=== PATIENT | female | born 1965 | race American Indian/Alaskan Native ===

== ENCOUNTER → 2017-01-25 | Day surgery (SDC) | payer OTHER ==
--- NOTE | 2017-01-28 09:38 | OP ---
DATE OF OPERATION: 01/25/2017 PROCEDURE: Ultrasound-guided core biopsies with clip placements at each of these areas PREOPERATIVE DIAGNOSIS: 1. Left axillary suspicious adenopathy 2. Left breast mass, 7 o'clock, 8 cm from the nipple 3. Left breast mass, 10 o'clock, 6 cm from the nipple 4. Left breast mass, 4 o'clock, 4 cm from the nipple POSTOPERATIVE DIAGNOSIS: 1. Left axillary suspicious adenopathy 2. Left breast mass, 7 o'clock, 8 cm from the nipple 3. Left breast mass, 10 o'clock, 6 cm from the nipple 4. Left breast mass, 4 o'clock, 4 cm from the nipple ANESTHESIA: Local ATTENDING SURGEON: Manuel Callahan MD ESTIMATED BLOOD LOSS: Minimal. COMPLICATIONS: None. DESCRIPTION OF PROCEDURE: Patient was made aware of the risks and benefits of the procedure and consented. She was placed in a supine position. Under sterile conditions with 1% lidocaine for local anesthesia, the left axilla was approached first. Using 1% lidocaine for local anesthesia, a small jeronimo was made in the skin. Using a 13-gauge, suction biopsy via a inferolateral approach and ultrasound guidance, 8 cores were obtained and submitted to pathology. Likewise under ultrasound guidance, a U-shaped clip was placed into the biopsy region. Next, the breast masses were approached. All were performed in a similar fashion. The 7-8 o'clock lesion was performed next. Under sterile conditions with 1% lidocaine for local anesthesia, a small jeronimo was made in the skin using a 13-gauge, suction biopsy via a inferolateral approach under ultrasound guidance, 8 cores were obtained and submitted to pathology. Likewise, under ultrasound guidance a bowtie-shaped clip was placed into the mass. Next, the 10 o'clock 6 cm from the nipple mass was approached. Under sterile conditions with 1% lidocaine for local anesthesia, a small jeronimo was made on the skin. Using a 10-gauge, suction biopsy via a lateral approach and ultrasound guidance, 4 cores were obtained and submitted to pathology. Likewise, under ultrasound guidance a U-shaped clip was placed into the biopsy region. Next was the 4 o'clock 4 cm from the nipple mass. Under sterile conditions with 1% lidocaine for local anesthesia, a small jeronimo was made in the skin. Using a 10-gauge, suction biopsy via a lateral approach under ultrasound guidance, 4 cores were obtained and submitted to pathology, and likewise a Mini Cork clip was placed as well. Steri-Strips and a sterile bandage were applied. The patient actually tolerated the procedure very well, and because of the multiple biopsies, I wrapped her chest in an LUCI wrap for 24 hours. Will contact her with the results. MANUEL CALLAHAN M.D. [id number]
--- NOTE | 2017-01-28 14:32 | PATH ---
Surgical Pathology Report Patient Name: ADRIENNE KAPOOR [facility] Rec. #: [id number] /Age/Gender: 1965 (Age: 51) / F Account: [id number] Location: Taken: 01/25/2017 Received: 01/25/2017 Reported: 01/28/2017 Physicians: Amara Callahan M.D. Specimen(s) Received A: RIGHT AXILLARY NODE BX B: RIGHT BREAST BIOPSY 7-8:00, 5CM FN C: RIGHT BREAST BIOPSY 10:00, 6CM FN D: RIGHT BREAST BIOPSY 4:00, 4 CM FN Clinical History Right breast and axilla biopsies Final Diagnosis A. lymph node, right axilla, core biopsy: Metastatic carcinoma involving lymph node. B. breast, right, 7-8:00 5 CM FN, core biopsy: Invasive ductal carcinoma, poorly differentiated, measuring 6 mm in greatest dimension in this material. C. breast, right, 10:00 6 CM FN, core biopsy: Invasive ductal carcinoma, poorly differentiated measuring 5 mm in greatest dimension IN THIS material. D. breast, right, 4:00, 4 CM FN, CORE biopsy: Invasive ductal carcinoma, poorly differentiated with prominent associated lymphoid tissue, possibly representing metastatic carcinoma involving (intramammary) LYMPH node. Invasive carcinoma measures 4 mm in greatest dimension IN THIS material. Results of ER and AK studies performed on blocks B,C,D at [facility] are as follows: ER (clone [id number] mouse monoclonal antibody by [employer]): 0 % nuclear staining (Negative). AK (clone16 mouse monoclonal antibody by [employer]: 0 % nuclear staining (Negative). Results of HER-2 and Ki67 studies will be reported separately in an addendum. Positive and negative controls (internal if applicable) show appropriate results. Formalin fixation time is within current ASCO/CAP recommendations for ER, AK and Her2 testing. Time to formalin fixation is not given. Electronically Signed Luciana Licea M.D. Addendum Reported: 01/29/2017 Addendum Diagnosis Results of Her2 (IHC) & Ki-67 studies performed on blocks B,C,D at [place], [place] ([id number] ) are as follows: Her2 IHC (EP3 from [employer], formerly known as [id number], using Man Polymer Refine detection kit): 0 (Negative). Ki-67: > 90% (High). Positive and negative controls (internal if applicable) show appropriate results. Luciana Licea M.D. Gross Description A. Received in formalin labeled "right axilla #1," is a 1.6 x 1.6 x 0.3 cm aggregate of multiple hsasan-yellow, irregular to cylindrical portions of fibroadipose tissue admixed with blood clot. The formalin is filtered and the specimen is entirely submitted in one cassette. B. Received in formalin labeled "right breast biopsy #2, 7-8:00, 5 cmfn," is a 1.2 x 1.2 x 0.3 cm aggregate of multiple hassan-yellow, irregular to cylindrical portions of fibroadipose tissue. The formalin is filtered and the specimen is entirely submitted in one cassette. C. Received in formalin labeled "right breast biopsy #3, 10:00, 6 cmfn," is a 2.0 x 1.6 x 0.3 cm aggregate of multiple hassan-yellow, irregular to cylindrical portions of fibroadipose tissue. The formalin is filtered and the specimen is entirely submitted in one cassette. D. Received in formalin labeled "right breast biopsy 4:00, 4 cmfn," is a 2.3 x 2.0 x 0.3 cm aggregate of multiple hassan-yellow, irregular to cylindrical portions of fibroadipose tissue. The formalin is filtered and the specimen is entirely submitted in one cassette. Time to formalin fixation: Not given Total formalin fixation time: Approximately 6 hours. 01/25/2017 saudi01/25/2017
== END | disposition home or self-care (01) ==
LOC: FRADUS-SUR 10:53
PROVIDERS: ATTEND Surgery Surgical Oncology
PROC: 0HBT3ZX Excision of Right Breast, Percutaneous Approach, Diagnostic (ICD-10-PCS; principal; 2017-01-25)
PROC: 07B53ZX Excision of Right Axillary Lymphatic, Percutaneous Approach, Diagnostic (ICD-10-PCS; 2017-01-25)
PROC: BH47ZZZ Ultrasonography of Upper Extremity (ICD-10-PCS; 2017-01-25)
DX: N63 Unspecified lump in breast (principal); C50.411 Malignant neoplasm of upper-outer quadrant of right female breast; C50.311 Malignant neoplasm of lower-inner quadrant of right female breast; C77.3 Secondary and unspecified malignant neoplasm of axilla and upper limb lymph nodes
CPT/HCPCS: 19083; 19084; 87899; 88305-TC; 88342-TC; A4648

== ENCOUNTER 2017-06-25 08:30 | Inpatient (IN) | payer OTHER ==
[2017-06-17 14:46] VITALS: BMI 24.0
--- NOTE | 2017-06-19 14:14 | HP ---
Admitting History and Physical - Primary Care Physician PCP: Amara Callahan - Admission Chief Complaint: right breast cancer History of Present Illness: 52 yo female noted to have right breast and axillary mass on self exam since 2016. Patient had a mammo and US which was positive for right 7-8 o'clock 3.3cm mass as well as suspicious masses at the 4 and 10 position with increased right adenopathy. Right core bx (01/2017) of 4, 8 and 10 o'clock lesion was positive for invasive ductal ca (triple neg). The right axillary lymph node bx was c/w metastatic ca. MRI done was c/w known multifocal right breast cancer. Patient underwent neoadjuvant chemo and is now presenting for right MRM without reconstruction. History Source: Patient Limitations to Obtaining History: No Limitations - Past Medical History Cardiovascular: Yes: HTN ...LMP Comment: s/p hysterectomy - Past Surgical History Additional Past Surgical History: (1995) unilateral oophorectomy and hysterectomy (2008 sec to fibroids) - Smoking History Smoking history: Never smoked Have you smoked in the past 12 months: No - Alcohol/Substance Use Hx Alcohol Use: No Home Medications - Allergies Allergies/Adverse Reactions: Allergies Allergy/AdvReac Type Severity Reaction Status Date / Time No Known Allergies Allergy Verified 06/17/17 14:48 - Home Medications Home Medications: Ambulatory Orders Amlodipine Besylate 10 mg PO DAILY 06/17/17 Cholecalciferol (Vitamin D3) [Vitamin D3 -] 1,000 unit PO DAILY 06/17/17 Family Disease History - Family Disease History Other Family History: maternal second cousin-leukemia as a child Review of Systems - Review of Systems Musculoskeletal: reports: Joint Pain Physical Examination Constitutional: Yes: Well Nourished, Calm Breast(s): Yes: Other (Breasts are symmetrical without skin changes. Palpable right lower outer quad 3.5 cm mass as well as a palpable 2 cm firm suspicious right axillary lymph node is noted.) Assessment/Plan A: Right multifocal breast cancer with axillary mets. Plan: Right MRM
[2017-06-25] MEDS ORDERED: DEXAMETHASONE SOD PHOSPHATE/PF 10 MG/ML SDV ONE (12:53)
[2017-06-25] MEDS ORDERED: BUPIVACAINE HCL/PF 2.5 MG/ML - 30 ML VIAL IJ ONE (12:53)
[2017-06-25] MEDS ORDERED: MIDAZOLAM HCL 2 MG/2 ML SINGLE DOSE VIAL ONE (13:08)
[2017-06-25] MEDS ORDERED: PROMETHAZINE HCL 25 MG/1 ML VIAL IVPUSH PRN (13:18)
[2017-06-25] MEDS ORDERED: ONDANSETRON 4 MG/2 ML VIAL IVPUSH PRN (13:18)
[2017-06-25] MEDS ORDERED: ACETAMINOPHEN 325 MG TABLET (FP) PO PRN (15:31)
[2017-06-25] MEDS ORDERED: ONDANSETRON 4 MG/2 ML VIAL IVPB PRN (15:31)
[2017-06-25] MEDS ORDERED: ZOLPIDEM TARTRATE 5 MG TABLET PO PRN (15:31)
[2017-06-25] MEDS: DEXTROSE 5%-0.45% SALINE 1,000 ML IV SCH (16:27)
[2017-06-25] MEDS: oxyCODONE HCL 5 MG TABLET PO PRN (17:08)
[2017-06-25] MEDS ORDERED: oxyCODONE HCL 5 MG TABLET PO PRN (17:35)
--- NOTE | 2017-06-25 17:58 | OP ---
DATE OF OPERATION: 06/25/2017 PREOPERATIVE DIAGNOSIS: Right breast cancer, status post neoadjuvant chemotherapy. POSTOPERATIVE DIAGNOSIS: Right breast cancer, status post neoadjuvant chemotherapy. PROCEDURE: Right modified radical mastectomy. ANESTHESIA: General intubated with pectoral block. ATTENDING SURGEON: Amara Callahan MD OPERATIVE REPORT: Patient was made aware of the risks and benefits of the procedure and consented. After the pectoral block, she was then placed in supine position, and after general anesthesia was induced, the patient was intubated. The operative site was prepped and draped in the usual sterile fashion. An elliptical incision was made around the nipple and skin of the breast using electrocautery. Skin flaps were made superior to the clavicle, medial to the sternum, lateral to the latissimus dorsi, and inferior to the inframammary fold. Using electrocautery, the breast tissue was taken off the pectoralis muscle, and extending laterally, the pectoral fascia was incised revealing the axillary vein and the lateral chest wall. Using blunt and sharp dissection, the long thoracic nerve was identified and retracted medially along its entire length. Additionally, the thoracodorsal trunk was identified and retracted laterally. Tissues between the two were bluntly and sharply dissected free, and the specimen was submitted with a short suture superior/long suture lateral, submitted as right breast modified radical mastectomy. Investigation of the axilla revealed some additional subpectoral lymph nodes which were bluntly and sharply dissected free and submitted as additional axillary nodes. Hemostasis maintained by pressure, electrocautery, and hemoclips. Investigation of the axilla revealed the long thoracic nerve and the thoracodorsal trunks were intact. The wound was copiously irrigated with normal saline. Hemostasis maintained by electrocautery. Via 2 inferior stab wounds, number 10 Tavo-Tavares drains were placed and sutured to the skin with 2-0 silk. The skin was then closed with deep 3-0 Vicryl, followed by running 3-0 Vicryl, followed by running subcuticular 4-0 Monocryl. Steri-Strips and sterile bandage were then applied, and the patient, having tolerated the procedure well, was transferred to the recovery room in excellent condition. AMARA CALLAHAN M.D. [id number]
[2017-06-25] MEDS: CEFAZOLIN 1 GM/D5W 50 ML IVPB SCH (21:27)
[2017-06-26] MEDS: oxyCODONE HCL 5 MG TABLET PO PRN ×2 (00:02→20:54)
[2017-06-26] MEDS: CEFAZOLIN 1 GM/D5W 50 ML IVPB SCH ×4 (03:25→20:54)
[2017-06-26 08:09] LABS: MCH 29.5 pg (25.7-33.7); MCHC 34.2 g/dl (32.0-36.0); MEAN CELL VOLUME 86.3 fl (80-96); MEAN PLT VOLUME 8.3 fl (7.5-11.1); PLATELET COUNT 181 K/MM3 (134-434); RDW 13.8 % (11.6-15.6); WHITE BLOOD COUNT 11.1 K/mm3 (4.0-10.8)
[2017-06-26] MEDS: amLODIPine BESYLATE 10 MG TABLET (FP) PO SCH (09:20)
[2017-06-26] MEDS ORDERED: HEPARIN NA (PORCINE) 5,000 UNITS/ML 1ML VIAL SQ SCH (10:00)
--- NOTE | 2017-06-26 11:00 | PN ---
Progress Note, Physician Chief Complaint: Right breast cancer with axillary mets S/P neoadjuvant chemotherapy and right modified radical mastectomy without reconstruction History of Present Illness: patient is OOB eating pain managed with oxycodone prn - Current Medication List Current Medications: Active Medications Acetaminophen (Tylenol -) 650 mg PO Q4H PRN PRN Reason: FEVER Amlodipine Besylate (Norvasc -) 10 mg PO DAILY ERIKA Last Admin: 06/26/17 09:20 Dose: 10 mg Fentanyl (Sublimaze Injection -) 25 mcg IVPUSH [id number] PRN PRN Reason: PAIN Stop: 06/28/17 13:19 Last Admin: 06/25/17 16:17 Dose: 25 mcg Cefazolin Sodium (Ancef 1 Gm Premixed Ivpb -) 50 mls @ 100 mls/hr IVPB Q6H-IV ERIKA Stop: 07/02/17 20:59 Last Admin: 06/26/17 09:20 Dose: 100 mls/hr Dextrose/Sodium Chloride (D5-1/2ns -) 1,000 mls @ 100 mls/hr IV ASDIR ERIKA Last Admin: 06/25/17 16:27 Dose: Not Given Ondansetron HCl (Zofran Injection) 4 mg IVPB Q6H PRN PRN Reason: NAUSEA AND/OR VOMITING Oxycodone HCl (Roxicodone -) 5 mg PO Q4H PRN PRN Reason: PAIN Last Admin: 06/26/17 00:02 Dose: 5 mg Oxycodone HCl (Roxicodone -) 10 mg PO Q6H PRN PRN Reason: PAIN Zolpidem Tartrate (Ambien -) 5 mg PO HS PRN PRN Reason: Insomnia - Objective Vital Signs: Vital Signs Temperature 98.1 F 06/26/17 09:38 Pulse Rate 76 06/26/17 09:38 Respiratory Rate 19 06/26/17 09:38 Blood Pressure 139/74 06/26/17 09:38 O2 Sat by Pulse Oximetry (%) 95 06/26/17 06:00 Constitutional: Yes: No Distress Breast(s): Yes: Other (Right chest wall flap viable no signs of infection incision intact with steristrips DIANA drain funtioning dressing changed) Labs: CBC, BMP 06/26/17 07:30 Assessment/Plan Right breast cancer S/P Right modified radical mastectomy contnue IV antibiotics spirometry oxycodone for pain prn OOb prepare for discharge tomorrow
--- NOTE | 2017-06-26 15:08 | PN ---
Progress Note (short form) - Note Progress Note: ANESTHESIOLOGY POSTOP: 52 YO female, POD #1, s/p mastectomy with ax node dissection. Patient doing well. Pain adequately controlled. Tolerating PO. Ambulating. Encouraged IS.
[2017-06-26] MEDS: DEXTROSE 5%-0.45% SALINE 1,000 ML IV SCH (16:07)
[2017-06-27] MEDS: CEFAZOLIN 1 GM/D5W 50 ML IVPB SCH ×2 (03:00→08:32)
[2017-06-27 05:56] VITALS: BP 127/67; PULSE 80; TEMP 98.8
[2017-06-27] MEDS: oxyCODONE HCL 5 MG TABLET PO PRN (08:35)
--- NOTE | 2017-06-27 08:48 | PN ---
Progress Note, Physician Chief Complaint: Right breast cancer S/P neoadjuvant chemotherapy and right modified radical mastectomy History of Present Illness: patient is eating pain managed with oxycodone, ready for discharge - Current Medication List Current Medications: Active Medications Acetaminophen (Tylenol -) 650 mg PO Q4H PRN PRN Reason: FEVER Amlodipine Besylate (Norvasc -) 10 mg PO DAILY [facility] Last Admin: 06/26/17 09:20 Dose: 10 mg Fentanyl (Sublimaze Injection -) 25 mcg IVPUSH [id number] PRN PRN Reason: PAIN Stop: 06/28/17 13:19 Last Admin: 06/25/17 16:17 Dose: 25 mcg Cefazolin Sodium (Ancef 1 Gm Premixed Ivpb -) 50 mls @ 100 mls/hr IVPB Q6H-IV ERIKA Stop: 07/02/17 20:59 Last Admin: 06/27/17 08:32 Dose: 100 mls/hr Dextrose/Sodium Chloride (D5-1/2ns -) 1,000 mls @ 100 mls/hr IV ASDIR ERIKA Last Admin: 06/26/17 16:07 Dose: Not Given Ondansetron HCl (Zofran Injection) 4 mg IVPB Q6H PRN PRN Reason: NAUSEA AND/OR VOMITING Oxycodone HCl (Roxicodone -) 5 mg PO Q4H PRN PRN Reason: PAIN Last Admin: 06/27/17 08:35 Dose: 5 mg Oxycodone HCl (Roxicodone -) 10 mg PO Q6H PRN PRN Reason: PAIN Zolpidem Tartrate (Ambien -) 5 mg PO HS PRN PRN Reason: Insomnia - Objective Vital Signs: Vital Signs Temperature 98.8 F 06/27/17 05:55 Pulse Rate 80 06/27/17 05:55 Respiratory Rate 20 06/27/17 05:55 Blood Pressure 127/67 06/27/17 05:55 O2 Sat by Pulse Oximetry (%) 97 06/27/17 05:55 Constitutional: Yes: Well Nourished, No Distress Breast(s): Yes: Other (Right chest wall flap viable no echymosis no S/S of infection,incision intact with steristrips, keyon drain functioning and dressing changed) Labs: CBC, BMP 06/26/17 07:30 Assessment/Plan Right breast cancer with axillary mets Discharge patient home today with cefadroxla and oxycodone prn no shower empty and record KEYON output twice daily return office visit one week with Dr Callahan
[2017-06-27] MEDS: amLODIPine BESYLATE 10 MG TABLET (FP) PO SCH (09:06)
--- NOTE | 2017-06-28 17:24 | PATH ---
Surgical Pathology Report Patient Name: ADRIENNE KAPOOR Med. Rec. #: [id number] /Age/Gender: 1965 (Age: 52) / F Account: [id number] Location: [facility] MED-SUR[facility] Taken: 06/25/2017 Received: 06/25/2017 Reported: 06/28/2017 Physicians: Amara Callahan M.D. Specimen(s) Received A: RIGHT BREAST MODIFIED RADICAL MASTECTOMY B: RIGHT AXILLA TISSUE Clinical History Rt breast CA Final Diagnosis A. breast, right, modified radical mastectomy: Minimal residual invasive ductal carcinoma and ductal carcinoma in situ (DCIS), comprising < 5% of treated tumor bed tissue comprised of dense hyalinizing fibrosis with lymphocytic infiltrate and histiocytic / giant cell reaction. (See note) the largest contiguous focus of residual invasive carcinoma spans approximately 3 mm in greatest dimension, microscopically. Surgical margins are uninvolved by invasive and in situ carcinoma; carcinoma is at 1.0 cm from the closest anterior margin. Nipple and skin are uninvolved by carcinoma. No lymphovascular invasion is identified. Remaining breast tissue shows atypical ductal hyperplasia (Adh) and usual ductal hyperplasia (UDH). Prior biopsy site changes are identified. Metastatic carcinoma involving three of sixteen lymph nodes (3/16). The larger two foci of metastatic carcinoma measure 5 mm and 2.5 mm in greatest dimension with one lymph node showing scattered tumor cells. All three lymph nodes show prominent treatment-related changes comprised of dense fibrosis and histiocytic reaction. EXTRANODAL EXTENSION CANNOT BE DETERMINED WITH CERTAINTY DUE TO PRESENCE OF PROMINENT TREATMENT-RELATED CHANGES. Pathologic stage (yptnm): ypT1a (m) ypN1c. SEE also invasive carcinoma case Summary below. Note: The carcinoma cannot be accurately graded due the presence of prominent treatment-related changes; however both invasive and in situ carcinoma show high nuclear grade. Myoepithelial immunohistochemical markers (SMM-HC and p63, performed on block A16 at [facility]) demonstrate the lack of myoepithelial cells in the residual invasive carcinoma, with preservation of myoepithelial cells in foci of DCIS. This finding supports the diagnosis. B. AXILLA, TISSUE, RIGHT , EXCISION: EIGHT LYMPH NODES, NEGATIVE FOR METASTATIC CARCINOMA (0/8). Comments Breast Invasive Carcinoma: Surgical Pathology Cancer Case Summary Based on AJCC/UICC TNM, 7th edition Procedure _X_ Total mastectomy (including nipple and skin) Lymph Node Sampling _X_ Axillary dissection (partial or complete dissection) Specimen Laterality _X_ Right Tumor Size: Size of Largest Invasive Carcinoma: 3 mm Tumor Focality _X_ Multiple foci of invasive carcinoma Number of foci: cannot be determined (scattered foci of residual tumor cells) Sizes of individual foci: largest contiguous focus up to 3 mm, additional scattered foci of residual tumor cells present Macroscopic and Microscopic Extent of Tumor Skin _X_ Invasive carcinoma does not invade into the dermis or epidermis Nipple _X_ DCIS does not involve the nipple epidermis Ductal Carcinoma In Situ (DCIS) _X_ DCIS is present with scattered foci of residual invasive carcinoma post neoadjuvant therapy Histologic Type of Invasive Carcinoma : _X_ Invasive carcinoma of no special type (ductal, not otherwise specified) Histologic Grade: (Raegan Histologic Score) Tubular Differentiation _X_ Score cannot be determined Nuclear Pleomorphism _X_ Score 3 Mitotic Rate _X_ Score cannot be determined Overall Grade _X_ Score cannot be determined. Margins _X_ Margins uninvolved by invasive carcinoma Distance from closest margin: 1 cm from anterior margin _X_ Margins uninvolved by DCIS Distance from closest margin: 1 cm from anterior margin Lymph-Vascular Invasion _X_ Not identified Lymph Nodes Total number of lymph nodes examined (sentinel and nonsentinel): 24 Number of sentinel lymph nodes examined: 0 Number of lymph nodes with macrometastases ( > 2 mm): 2 Number of lymph nodes with micrometastases (>0.2 mm to 2 mm and/or >200cells):0 Number of lymph nodes with isolated tumor cells (=0.2 mm and =200 cells): 1 Size of largest metastatic deposit : 5 mm Extranodal Extension _X_ Indeterminate Pathologic Staging (pTNM) Primary Tumor (Invasive Carcinoma): ypT1a(m) Regional Lymph Nodes: ypN1a Biomarker Studies Results of ER and WI studies performed on this specimen (block A22, axillary lymph node) at [facility] are as follows: ER (clone [id number] mouse monoclonal antibody by [employer]): 0 % nuclear staining (Negative). WI (clone16 mouse monoclonal antibody by [employer]): 0 % nuclear staining (Negative). Results of Her2 (IHC) studies performed on this specimen (block A22, axillary lymph node) at [place], [place] ( [id number] ) are as follows: Her2 IHC (EP3 from [employer], formerly known as [id number], using Man Polymer Refine detection kit): 0 (Negative). Positive and negative controls (internal if applicable) show appropriate results. Formalin fixation time is within current ASCO/CAP recommendations for ER, WI and Her2 testing. Time to formalin fixation is not given. Electronically Signed Luciana Licea M.D. Gross Description A.Received in formalin, labeled "right breast modified radical mastectomy," is a 699 gram, 17.0 x 16.5 x 4.5 cm. right mastectomy specimen with a short suture marking the superior aspect and a long suture marking the lateral aspect of the specimen, per the surgeon. There is a 5 x 5.0 x 1.3 cm portion of axillary fat attached to the lateral aspect of the specimen. The anterior surface displays a 16.0 x 5.5 cm hassan, elliptical portion of skin with a 1.2 cm diameter nipple. The deep margin is inked black and the anterior soft tissue margin is inked blue. The specimen is serially sectioned from lateral to medial. Sectioning reveals abundant focally firm fibrous tissue. No definitive mass is identified. There is a biopsy clip identified in the upper inner quadrant (UIQ). Sectioning of the axillary fat reveals multiple hassan, irregular lymph nodes. Sectioning of one of the lymph nodes reveals a biopsy clip. Cocoa Butter Filter Operator sections are submitted in 35 cassettes as follows: 1-serially sectioned nipple; 2-subareolar shave; 3-8-upper outer quadrant; 9-12-lower outer quadrant; 13-15-UIQ (biopsy clip in cassette 13); 16-18-lower inner quadrant; 19-skin; 20-anterior soft tissue margin; 21-deep margin; 22-23-one whole quadrisected lymph node displaying biopsy clip; 24-25-one whole quadrisected lymph node; 26-32-one whole bisected lymph node each; 33-two whole lymph nodes; 78-69-ucwtxtce whole lymph nodes each. Time to formalin fixation: Not given Total formalin fixation time: Approximately 26 hours B. Received in formalin labeled "right axilla tissue," is a 5.0 x 4.0 x 1.1 cm aggregate of yellow, lobulated adipose tissue. Sectioning reveals multiple hassan irregular lymph nodes. The lymph nodes are entirely submitted in 5 cassettes as follows: 1-3-one whole bisected lymph node each; 4-7-bzsdgdcs whole lymph nodes each. 06/26/201706/26/2017
== END 2017-06-27 09:55 | disposition home or self-care (01) | DRG 362 ==
LOC: FM/S 11:21
PROVIDERS: ADMIT Surgery Surgical Oncology; ATTEND Surgery Surgical Oncology
PROC: 07B50ZX Excision of Right Axillary Lymphatic, Open Approach, Diagnostic (ICD-10-PCS; 2017-06-25)
PROC: 0HTT0ZZ Resection of Right Breast, Open Approach (ICD-10-PCS; principal; 2017-06-25 13:19)
DX: C50.911 Malignant neoplasm of unspecified site of right female breast (principal); C77.3 Secondary and unspecified malignant neoplasm of axilla and upper limb lymph nodes; I10 Essential (primary) hypertension
CPT/HCPCS: 36415; 85027; 88307-TC; 88309-TC; 94760

== ENCOUNTER → 2021-11-22 | Day surgery (SDC) | payer OTHER | END | disposition home or self-care (01) | LOC: JMAMMO-SUR 11:06 | PROVIDERS: ATTEND Physician Assistant | PROC: 0H9U3ZX Drainage of Left Breast, Percutaneous Approach, Diagnostic (ICD-10-PCS; principal; 2021-11-22) | DX: C50.912 Malignant neoplasm of unspecified site of left female breast (principal) | CPT/HCPCS: 19083; 76942-TC; 77065-TC; 87899; 88305-TC; 88342-TC; A4648 ==

== ENCOUNTER 2023-11-21 11:46 | Emergency (ER) | payer OTHER ==
[2023-11-21 12:13] VITALS: BP 140/75; PULSE 65; RESP 16; TEMP 98.6; BMI 25.7
[2023-11-21] MEDS ORDERED: DIPHTH,PERTUSS(ACELL),TET 0.5 ML DISP.SYRIN IM ONE (13:18)
[2023-11-21] MEDS: DIPHTH,PERTUSS(ACELL),TET 0.5 ML DISP.SYRIN IM ONE (13:25)
== END 2023-11-21 13:35 | disposition home or self-care (01) ==
LOC: FER 11:46
PROC: 0HQNXZZ Repair Left Foot Skin, External Approach (ICD-10-PCS; principal; 2023-11-21)
PROC: 3E0234Z Introduction of Serum, Toxoid and Vaccine into Muscle, Percutaneous Approach (ICD-10-PCS; 2023-11-21)
DX: S91.115A Laceration without foreign body of left lesser toe(s) without damage to nail, initial encounter (principal); W20.8XXA Other cause of strike by thrown, projected or falling object, initial encounter
CPT/HCPCS: 12001-25; 90471; 90715; 99282-25